=== PATIENT | female | born 2000 | race Caucasian/White ===

== ENCOUNTER 2022-03-12 15:17 | Outpatient (REF) | payer OTHER, SELFPAY ==
--- NOTE | 2022-03-12 12:15 | PAPFT_PTH ---
PATIENT: Lawrence Man LOC: [facility] U#:[id number] AGE/SX: 21/F ROOM: RE03/12/[address]: Noelle Bedoya : 2000 BED: DIS: 03/12/2022 SPEC #: [id number] RECD: 03/12/22 17:55 STATUS: EMILY REQ #: [id number] JENARO: 03/12/22 12:[address]: Noelle Bedoya DEPT: [facility] Cytology RECD BY: Olamide Aly ENTERED: 03/12/22 17:55 SP TYPE: PAPFT OT DR: Charlene Strong Tissues: 1 - CX/ENDOCX FOR PAP SMEARS Procedures: PAP THIN PREP/[facility] Screening Comments: [id number] (CERVICAL)
--- NOTE | 2022-03-12 12:15 | PAPFT_PTH ---
PATIENT: Lawrence Man LOC: [facility] U#:[id number] AGE/SX: 21/F ROOM: RE03/12/[address]: Noelle Bedoya : 2000 BED: DIS: 03/12/2022 SPEC #: [id number] RECD: 03/12/22 17:48 STATUS: EMILY REQ #: [id number] JENARO: 03/12/22 12:[address]: Noelle Bedoya DEPT: [facility] Cytology RECD BY: Olamide Aly ENTERED: 03/12/22 17:49 SP TYPE: PAPFT OT DR: Charlene Strong Tissues: 1 - CX/ENDOCX FOR PAP SMEARS Procedures: PAP THIN PREP/[facility] Screening Comments: [id number] (VAGINAL - LABIAL)
== END 2022-03-12 15:18 | disposition home or self-care (01) ==
LOC: LBN 15:17
PROVIDERS: PCP Nurse Practitioner Psychiatric/Mental Health; Visit Provider Physician Assistant
DX: Z12.72 Encounter for screening for malignant neoplasm of vagina (principal); Z12.4 Encounter for screening for malignant neoplasm of cervix
CPT/HCPCS: 88142

== ENCOUNTER 2022-03-12 15:31 | Outpatient (REF) | payer OTHER, SELFPAY ==
[2022-03-12 19:33] LABS: Bilirubin Negative (Negative); Blood Moderate (Negative); Clarity Sl Cloudy (Clear); Glucose Negative (Negative); Ketones Negative (Negative); Leukocyte Esterase Trace (Negative); Nitrite Negative (Negative); Specific Gravity 1.025 (1.005-1.025); Urobilinogen 0.2 EU/dL (Up TO 0.2); pH 6.5 (5-8)
[2022-03-12 19:53] LABS: Bacteria Many HPF (Negative); C & S Indicated? No/Sq. Contamination; Crystals Negative HPF (Negative); Epithelial Cells Many HPF (Negative); Mucus Negative (Negative); WBC 20-50 HPF (0-5)
[2022-03-13 16:01] LABS: COVID-19 RT-PCR UVMMC Result Positive (Negative)
[2022-03-14 10:29] LABS: Hepatitis B Surface Ag Negative (Negative)
[2022-03-14 10:34] LABS: Syphilis Serology (RPR) Negative (Negative)
[2022-03-14 10:52] LABS: HIV-1/2 Ag & Ab Screen Negative (Negative)
[2022-03-14 11:03] LABS: Hepatitis C Ab w Rflx HCV PCR Negative (Negative)
[2022-03-15 00:04] LABS: HSV 1 PCR Negative (Negative); HSV 2 PCR Negative (Negative); Specimen Source Vaginal
== END 2022-03-12 15:32 | disposition home or self-care (01) ==
LOC: LBN 15:31
PROVIDERS: PCP Nurse Practitioner Psychiatric/Mental Health; Visit Provider Physician Assistant Medical
DX: R39.9 Unspecified symptoms and signs involving the genitourinary system (principal); L98.8 Other specified disorders of the skin and subcutaneous tissue; Z11.3 Encounter for screening for infections with a predominantly sexual mode of transmission; Z20.822 Contact with and (suspected) exposure to COVID-19; Z11.4 Encounter for screening for human immunodeficiency virus [HIV]; Z11.59 Encounter for screening for other viral diseases
CPT/HCPCS: 86803; 87340; 87389; 87491; 87529; 87591; U0003; 81003; 81015; 86592; 87070; 87205; 87480; 87510; 87660

== ENCOUNTER 2022-03-12 15:53 | Outpatient (REF) | payer OTHER, SELFPAY | END 2022-03-12 15:54 | disposition home or self-care (01) | LOC: LBN 15:53 | PROVIDERS: PCP Nurse Practitioner Psychiatric/Mental Health; Visit Provider Physician Assistant Medical ==

== ENCOUNTER 2022-03-12 15:54 | Outpatient (REF) | payer OTHER, SELFPAY | END 2022-03-12 15:55 | disposition home or self-care (01) | LOC: LBN 15:54 | PROVIDERS: PCP Nurse Practitioner Psychiatric/Mental Health; Visit Provider Physician Assistant Medical ==

== ENCOUNTER 2023-08-19 09:40 | Outpatient (REF) | payer OTHER, SELFPAY ==
[2023-08-19 12:55] LABS: Bilirubin Negative (Negative); Blood Large (Negative); Clarity Cloudy (Clear); Glucose Negative (Negative); Ketones Negative (Negative); Leukocyte Esterase Small (Negative); Nitrite Negative (Negative); Specific Gravity 1.015 (1.005-1.025); Urobilinogen 0.2 mg/dL (Up to 0.2)
[2023-08-19 13:08] LABS: Bacteria Rare HPF (Negative); C & S Indicated? Yes; Casts Negative LPF (Negative); Crystals Negative HPF (Negative); Epithelial Cells Rare HPF (Negative); Mucus Trace (Negative); Other Cells Negative (Negative); RBC >50 HPF (0-2); WBC >50 HPF (0-5)
== END 2023-08-19 09:41 | disposition home or self-care (01) ==
LOC: LBN 09:40
PROVIDERS: PCP Nurse Practitioner Psychiatric/Mental Health; Visit Provider Nurse Practitioner Family
DX: R30.0 Dysuria (principal); R35.0 Frequency of micturition; N39.0 Urinary tract infection, site not specified
CPT/HCPCS: 87077; 81003; 81015; 87086; 87186

== ENCOUNTER 2024-08-27 11:39 | Outpatient (REF) | payer OTHER, SELFPAY | END 2024-08-27 11:40 | disposition home or self-care (01) | LOC: LBN 11:39 | PROVIDERS: PCP Nurse Practitioner Psychiatric/Mental Health; Visit Provider Physician Assistant | DX: N39.0 Urinary tract infection, site not specified (principal) | CPT/HCPCS: 87077; 87086 ==